=== PATIENT | female | born 1960 | race Caucasian/White ===

== ENCOUNTER 2024-06-25 14:19 | Outpatient (CLI) | payer MEDICARE, BC, SELFPAY ==
[2024-06-25] VITALS (7 sets, daily range): BP systolic 65–151; BP diastolic 31–105; PULSE 58–82; RESP 14–16; TEMP 37; O2SAT 94–99
--- NOTE | 2024-06-25 13:50 | CRLHL7_ITS ---
For Patients: As a result of the Century Cures Act, medical imaging exams and procedure reports are released immediately into your electronic medical record. You may view this report before your referring provider. If you have questions, please contact your health care provider. INDICATION: Status post thoracentesis. COMPARISON: None. TECHNIQUE: Single frontal radiographic view(s) of the chest. FINDINGS: Vascular stent projects over the left medial clavicle with the contour appearing frayed and irregular. Two curvilinear metal density objects measuring up to 19 millimeters project over the left perihilar region. Small right pleural effusion as well as right lateral pleural thickening. No definite focal pulmonary consolidation. Normal heart size. There are multiple acute right-sided rib fractures. There are osseous degenerative changes. No portable radiographic evidence of pneumothorax is detected. IMPRESSION: No portable radiographic evidence of pneumothorax is detected. Small right pleural effusion. There are multiple acute right-sided rib fractures. Vascular stent projects over the left medial clavicle with the contour appearing frayed and irregular. Two curvilinear metal density objects measuring up to 19 millimeters project over the left perihilar region, presumably representing embolized material from the aforementioned stent. Dictated by Yoshi Lopez MD @ 06/25/2024 4:11:31 PM (Electronically Signed)
--- NOTE | 2024-06-25 15:11 | PM.PROC ---
Procedure Note Date Seen: 06/25/24 Will [facility] bill your pro fee for this procedure?: No Pre-op diagnosis: 1. Traumatic right pleural effusion with pneumothorax and rib fractures. Post-op diagnosis: same Procedure: 1. Ultrasound-guided right thoracentesis. Procedure Description: Ultrasound was brought onto the field and a right pleural effusion was visualized. 1% lidocaine was used to anesthetize the skin over the rib and local anesthetic was also injected to anesthetize the needle tract over the rib. A small skin dimitri was made with 11 blade scalpel and a thoracentesis needle with an angio cath was advanced into the right chest over the rib under US guidance. When the needle with the catheter was in the chest cavity, the needle was withdrawn and thoracentesis catheter was advanced further into the chest without difficulties. Dark bloody thin fluid was aspirated from the chest. 180 mL of fluid were sent to the lab for evaluation. A total of 580 cc of fluid was removed from the chest. Postprocedure ultrasound did not show fluid in the chest. The catheter was then withdrawn and skin incision was closed with Dermabond. Patient tolerated procedure well. Post procedure CXR was ordered. EBL: none Complications: none Anesthesia: local Condition: stable Disposition: no change
[2024-06-25 15:50] LABS: Albumin* 4.1 g/dL (3.3-5.0)
[2024-06-25 15:52] LABS: INR 0.94 (0.91-1.10); Prothrombin Time 13.1 Seconds
[2024-06-25 15:53] LABS: Bilirubin Total* 0.4 mg/dL (0.1-1.5); Cholesterol* 228 mg/dL (90-199); Lactate Dehydrogenase* 234 U/L (120-246); Total Protein* 6.4 g/dL (6.0-8.3)
[2024-06-25 16:18] LABS: pH Body Fluid* 7.5
[2024-06-25 16:28] LABS: BF Clarity* Cloudy; BF Color Blood Tinged; BF Total Volume* 170; Mononuclear WBC Body Fluid* 60 %; Polynuclear WBC Body Fluid* 40 %; RBC, Body Fluid* 357000 Cells/uL; WBC, Body Fluid* 17353 Cells/uL
[2024-06-25 16:41] LABS: Albumin Body Fluid* 2.6 gm/dL; Amylase Body Fluid* 31 U/L; Body Fluid Total Protein* 4.4 gm/dL; Cholesterol Body Fluid* 122 mg/dL; Glucose Body Fluid* 96 mg/dL; LDH Body Fluid* 506 U/L
[2024-06-27 14:40] LABS: Carcinoembryonic Antigen 4.4 ng/mL (<=3.8)
== END 2024-06-25 15:30 | disposition home or self-care (01) ==
LOC: US 14:22
PROVIDERS: PCP Family Medicine; Visit Provider Surgery
DX: J93.9 Pneumothorax, unspecified (principal); J90 Pleural effusion, not elsewhere classified
CPT/HCPCS: 32555; 36415; 71045; 82040; 82042; 82150; 82247; 82378; 82465; 82945; 83615; 83986; 84155; 84157; 84311; 85610; 87015; 87070; 87075; 87102; 87116; 87186; 87205; 88112; 88305; 89051

== ENCOUNTER 2025-01-29 10:58 | Outpatient (CLI) | payer MEDICARE, BC, SELFPAY ==
--- NOTE | 2025-01-29 11:15 | CRLHL7_ITS ---
For Patients: As a result of the Century Cures Act, medical imaging exams and procedure reports are released immediately into your electronic medical record. You may view this report before your referring provider. If you have questions, please contact your health care provider. Procedure: Right gluteal fluid collection aspiration with ultrasound guidance. Indication: Residual deep fluid collection status post trauma right gluteal region Technique/Findings: The procedure, risks, and alternative therapies were discussed in detail, and written informed consent was obtained. Possible complications including bleeding and infection. A timeout was performed to verify correct patient and procedure. Limited ultrasound was performed demonstrating a small collection of fluid within the deep soft tissues of the right upper gluteal space, corresponding with the CT. The skin was marked. Patient was prepped and draped in the usual sterile fashion. All elements of maximum sterile barrier technique were used. Soft tissues were anesthetized with 1% lidocaine. A 7 cm 5 [place] [employer] Machine[employer] needle was inserted into the fluid collection. 25 cc of serosanguineous fluid was removed. The fluid was discarded. Patient tolerated the procedure well. No immediate complications. Impression: Successful ultrasound guided right posterior gluteal fluid collection aspiration. No immediate complications. Dictated by Link Aquino MD @ 01/29/2025 12:17:31 PM (Electronically Signed)
== END 2025-01-29 10:59 | disposition home or self-care (01) ==
LOC: US 11:04
PROVIDERS: PCP Family Medicine; Visit Provider Surgery
DX: S30.0XXA Contusion of lower back and pelvis, initial encounter (principal)
CPT/HCPCS: 10005